=== PATIENT | male | born 1970 | race Caucasian/White ===

== ENCOUNTER 2020-11-06 18:25 | Emergency (ER) | payer OTHER ==
[~2020-11-06 18:25] MED LIST: DICLOFENAC SODI75 MG PO; DOXYCYCLINE MO100 MG PO; FLEXERIL10 MG PO; MEDROL 4MG DOSEP4 MG PO; NORCO 10-325 T1 EACH PO; NORCO 5-325 TA1 EACH PO; ROBAXIN500 MG PO; TRAMADOL HCL50 MG PO
[2020-11-06] MEDS ORDERED: MOTRIN600 MG PO (19:50)
[2020-11-06] MEDS ORDERED: NORCO 5-325 TA1 EACH PO (19:50)
== END 2020-11-06 20:05 | disposition home or self-care (01) ==
LOC: FER 18:25
DX: M54.5 Low back pain (principal); G89.29 Other chronic pain; I10 Essential (primary) hypertension; E11.9 Type 2 diabetes mellitus without complications; J45.909 Unspecified asthma, uncomplicated; F17.210 Nicotine dependence, cigarettes, uncomplicated; Z87.39 Personal history of other diseases of the musculoskeletal system and connective tissue; Z79.899 Other long term (current) drug therapy
CPT/HCPCS: 99283; J1885

== ENCOUNTER 2020-12-27 07:31 | Emergency (ER) | payer OTHER ==
[~2020-12-27 07:31] MED LIST changes: +MOTRIN600 MG PO
[2020-12-27] MEDS ORDERED: VIBRAMYCIN100 MG PO (13:37)
[2020-12-27] MEDS ORDERED: KEFLEX250 MG PO (13:37)
== END 2020-12-27 13:50 | disposition home or self-care (01) ==
LOC: FER 07:31
DX: N49.2 Inflammatory disorders of scrotum (principal); E11.9 Type 2 diabetes mellitus without complications; I10 Essential (primary) hypertension; F17.210 Nicotine dependence, cigarettes, uncomplicated
CPT/HCPCS: 87070; 87077; 87205

== ENCOUNTER 2021-02-03 13:46 | Emergency (ER) | payer OTHER ==
[~2021-02-03 13:46] MED LIST changes: +KEFLEX250 MG PO; +VIBRAMYCIN100 MG PO
[2021-02-03 16:58] LABS: BILIRUBIN NEGATIVE (NEGATIVE); BLOOD NEGATIVE Ery/uL (NEGATIVE); CLARITY CLEAR (CLEAR); COLOR YELLOW (YELLOW); GLUCOSE (U) 3+ mg/dL (NORMAL); LEUKOCYTES NEGATIVE Leu/uL (NEGATIVE); NITRITE NEGATIVE (NEGATIVE); PROTEIN NEGATIVE (NEGATIVE); SPECIFIC GRAVITY <=1.005 (1.001-1.030); UROBILINOGEN 0.2 mg/dL (0.2-1.0); pH 6.5 (5.0-9.0)
[2021-02-03 16:58] LABS: BASOPHIL 0.5 % (0-2); EOSINOPHIL 1.3 % (0-5); HCT 43.5 % (42.0-52.0); LYMPHOCYTE 31.1 % (15-48); MCH 28.7 pg (25.0-31.0); MCHC 34.5 g/dL (32.0-36.0); MCV 83.3 fL (78.0-100.0); MONOCYTE 6.5 % (0-12); MPV 12.1 fL (6.0-9.5); NEUTROPHIL 60.3 % (41-80); NRBC 0; PLT 273 K/uL (150-400); RBC 5.22 M/uL (4.70-6.00); RDW 12.8 % (11.5-14.0); WBC 9.6 K/uL (4.0-10.5)
[2021-02-03 17:05] LABS: LACTIC ACID 1.9 mmol/L (0.4-1.9)
[2021-02-03 17:12] LABS: ALBUMIN 3.6 g/dL (3.4-5.0); BILIRUBIN - TOTAL 0.6 mg/dL (0.2-1.0); BUN/CREAT RATIO (CALC) 7.1 RATIO; CREATININE 0.7 mg/dL (0.67-1.17); GLOBULIN (CALCULATION) 4.7 g/dL; POTASSIUM 3.5 mmol/L (3.5-5.1); TOTAL PROTEIN 8.3 g/dL (6.4-8.2)
[2021-02-03] MEDS ORDERED: DOXYCYCLINE MO100 MG PO (20:13)
== END 2021-02-03 21:10 | disposition home or self-care (01) ==
LOC: FER 13:46
PROVIDERS: Emergency Medicine
DX: N49.2 Inflammatory disorders of scrotum (principal); E11.65 Type 2 diabetes mellitus with hyperglycemia; F17.210 Nicotine dependence, cigarettes, uncomplicated
CPT/HCPCS: 36415; 76870; 80053; 81003; 83605; 84145; 85025; 87040; 93005; J1170; J2405; J3370; J7030; J7050

== ENCOUNTER 2021-12-29 01:16 | Emergency (ER) | payer OTHER ==
[2021-12-29] MEDS ORDERED: MEDROL 4MG DOSEP4 MG PO (01:40)
== END 2021-12-29 02:29 | disposition home or self-care (01) ==
LOC: FER 01:16
DX: M54.12 Radiculopathy, cervical region (principal); I10 Essential (primary) hypertension; F17.200 Nicotine dependence, unspecified, uncomplicated
CPT/HCPCS: J1885; J7512